=== PATIENT | male | born 1950 | race Caucasian/White ===

== ENCOUNTER 2017-02-18 18:10 | Inpatient (IN) | payer OTHER, MEDICARE ==
[~2017-02-18] VITALS: Ht 175.3 cm; Wt 92.6 kg
[2017-02-18 20:46] VITALS: BP 140/78; PULSE 80; RESP 17; TEMP 97.4; O2SAT 96
[2017-02-18] MEDS ORDERED: SILVER SULFADIAZINE/LIDOCAINE CREAM 60 GM JAR RECTAL PRN (23:00)
[2017-02-18 23:03] LABS: AUTOMATED NEUTROPHIL # 4.8 TH/MM3 (1.8-7.7); BASOPHIL # 0.1 TH/MM3 (0-0.2); BASOPHIL % 0.9 % (0.0-2.0); EOSINOPHIL # 0.4 TH/MM3 (0-0.4); EOSINOPHIL % 5.9 % (0.0-4.0); HEMATOCRIT 33.9 % (39.0-51.0); HEMO FLAGS DIFF FINAL; LYMPH % 21.5 % (9.0-44.0); LYMPHOCYTE # 1.6 TH/MM3 (1.0-4.8); MEAN CELL VOLUME 93.9 FL (80.0-100.0); MEAN CORPUSCULAR HEMOGLOBIN 32.5 PG (27.0-34.0); MEAN CORPUSCULAR HGB CONC 34.6 % (32.0-36.0); MONO % 9.2 % (0.0-8.0); NEUT % 62.5 % (16.0-70.0); PLATELET COUNT 179 TH/MM3 (150-450); RED BLOOD COUNT 3.61 MIL/MM3 (4.50-5.90); RED CELL DISTRIBUTION WIDTH 12.6 % (11.6-17.2); WHITE BLOOD COUNT 7.6 TH/MM3 (4.0-11.0)
[2017-02-18 23:05] LABS: APTT (PATIENT) 28.2 SEC (24.3-30.1)
[2017-02-18 23:09] LABS: ANION GAP 10 MEQ/L (5-15); AST (GOT) 23 U/L (15-37); BICARBONATE 21.4 MEQ/L (21.0-32.0); BLOOD UREA NITROGEN 18 MG/DL (7-18); CHLORIDE 102 MEQ/L (98-107); GLOMERULAR FILTRATION RATE 68 ML/MIN (>89); POTASSIUM 3.8 MEQ/L (3.5-5.1); SODIUM (NA) 133 MEQ/L (136-145)
[2017-02-18 23:10] LABS: ALT (GPT) 25 U/L (12-78)
[2017-02-18 23:13] LABS: ALKALINE PHOSPHATASE 76 U/L (45-117); TOTAL BILIRUBIN ADULT 0.7 MG/DL (0.2-1.0)
--- NOTE | 2017-02-18 23:15 | MH ---
cc: BAKARI MALIK M.D., KASHYAP M.D. 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 HISTORY OF PRESENT ILLNESS: Mr. Bhakta is a 66 year-old male who complains of severe pain and tenderness per rectum. Mr. Bhakta was in relatively good health having had a colonic evaluation early in the year which was pretty unremarkable. He recently presented to Dr. Esparza with complaints of increasing rectal pain and tenderness with difficulty with stool. He says he has been straining quite a bit to get the stool out, having some blood on the paper. He has had more pain and tenderness even to the point where he cannot sit, having difficulty standing, difficulty eating with only flatus and very constipated stool, less than once a week. He has tried laxatives and enemas without any significant improvement. Dr. Esparza did an examination under anesthesia and sigmoidoscopy noting severe tightness and stenosis of the anal canal. Biopsies have confirmed squamous cell carcinoma. He denies any nausea and vomiting. He says his abdomen has always been quite large but not any bigger than usual. He denies any fever. No hemorrhoidal prolapse or melena. Weight has been about 210 and stable. PAST MEDICAL HISTORY, PAST SURGICAL HISTORY: Previous coronary stents 15 years ago. No abdominal surgery. History of diabetes and gout as well. MEDICATIONS See admitting list. ALLERGIES None known. SOCIAL HISTORY: Denies tobacco use. Drinks alcohol socially. No history of colorectal cancer. PERTINENT PHYSICAL A very pleasant, heavy set male in some distress. HEENT: Remarkable for very dry but pale membranes, nonicteric sclera. Neck was supple without gross adenopathy. Chest: Diminished in the bases, clear anteriorly. Heart had a regular rhythm. Abdomen is very full quite a bit of tympany. Bowel sounds are normal. No rebound or guarding, or any masses noted. Anal inspection reveals very inflamed, irritated anal skin, several large hemorrhoidal tags which are very tender and hard to touch, consistent with anal cancer. Lumen of the canal is very small, not even admitting the fifth finger, with quite a bit of irregularity and firmness to minimal palpaiton. Extremities: No cyanosis or clubbing, and 1+ pedal edema. 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 The patient is significantly disabled with this rapidly growing tumor. We will get a CT scan to see if any other signs of metastatic disease is present in the chest, abdomen and pelvis. Suggest we proceed with diverting colostomy for patient comfort and to allow him to proceed with course of radiation and chemotherapy for the anal cancer. The risks, benefits and alternatives discussed at great length with the patient and will try to set up all the consults and surgery as soon as possible. MD FAISAL Wu/GANGA /10:57 PM /11:06 PM
[2017-02-19] VITALS (8 sets, daily range): BP systolic 138–175; BP diastolic 82–90; PULSE 70–103; RESP 17–19; TEMP 95.8–99; O2SAT 96–99
[2017-02-19] MEDS: oxyCODONE/ACETAMINOPHEN 5 MG/325 MG TAB PO PRN ×4 (00:06→20:14)
[2017-02-19] MEDS: MAGNESIUM CITRATE SOLN 300 ML BTL PO SCH ×2 (00:06→06:16)
[2017-02-19 00:14] LABS: BACTERIA, URINE RARE /hpf; BLOOD, URINE NEG (NEG); COMMENT (UR) CULT NOT INDICATED; CULTURE IF INDICATED CULT NOT INDICATED; GLUCOSE,URINE NEG (NEG); HYALINE CAST, URINE 3 /lpf (RARE); KETONE, URINE NEG (NEG); MUCUS URINE FEW /lpf (OCC); NITRITE,URINE NEG (NEG); PH, URINE 5.5 (5.0-8.5); URINE COLOR YELLOW (YELLW/STRAW)
[2017-02-19] MEDS: DEXT 5%-NACL 0.9% 1000 ML INJ 1,000 ML IV SCH ×2 (00:49→17:29)
[2017-02-19] MEDS: SILVER SULFADIAZINE/LIDOCAINE CREAM 60 GM JAR RECTAL SCH ×6 (01:30→20:18)
[2017-02-19] MEDS ORDERED: ALLO100T PO (04:16)
[2017-02-19] MEDS ORDERED: METF1000 PO (04:16)
[2017-02-19] MEDS ORDERED: TRAM50TA PO (04:16)
[2017-02-19] MEDS ORDERED: CLOP75TA PO (04:16)
[2017-02-19] MEDS ORDERED: METO50TA PO (04:16)
[2017-02-19] MEDS ORDERED: ATOR40TA16 PO (04:16)
[2017-02-19] MEDS ORDERED: LISI40TA PO (04:16)
[2017-02-19] MEDS ORDERED: TRAZ50TA12 PO (04:16)
[2017-02-19] MEDS ORDERED: METR500T10 PO (04:16)
[2017-02-19] MEDS ORDERED: VANCOMYCIN INJ 1,000 MG in SODIUM CHLOR 0.9% 250 ML INJ 250 ML IV SCH (08:30)
[2017-02-19] MEDS ORDERED: ceFAZolin 2 GM PREMIX 50 ML IV SCH (08:30)
--- NOTE | 2017-02-19 08:47 | MB ---
cc: JOANNA DING DATE OF CONSULTATION 02/19/2017 CHIEF COMPLAINT Squamous cell cancer of the anal canal. PATIENT PROFILE The patient is a 66-year-old male. He is but has been from his for 15 years. He lives alone and is independent. He has one son and two stepdaughters. He was born in [place] and currently lives in [place], [place]. He is retired. 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 He stopped smoking 21 years ago and had smoked a pack of cigarettes per day for 10 years. He has four or five beers per day. He enjoys sitting at the pool, having beer and being with friends. HISTORY OF PRESENT ILLNESS The patient is a 66-year-old male who states that in approximately May of 2017 he had a routine colonoscopy and there was no evidence of malignancy. During the past 3 months he has had increasing pain in the anal area with small amounts of bleeding. He returned to see his primary care physician, Dr. Davion Gerard, and had a rectal exam revealing an abnormality in the anal canal. The patient saw Dr. Esparza (GI) again and approximately 2 weeks ago had a rectal exam which identified a mass in the anal canal. Two days later he had a biopsy and, although I do not have the path report, Dr. Dos Santos indicates that this revealed a squamous cell carcinoma. Dr. Esparza referred the patient to Dr. Dos Santos who is a colorectal surgeon. The patient was found to have a near-obstructing lesion and for this reason he is now hospitalized with the intention to do a diverting colostomy within the next day. At the present time the patient is miserable. The anal area hurts, it bleeds. He has had a 10-pound weight loss. PAST SURGICAL HISTORY 1. Right inguinal hernia repair 40 years ago. 2. Approximately 15 years ago he had a coronary stent placed and a second coronary stent placed approximately 11 years ago. PAST MEDICAL HISTORY 1. Diabetes type 2. 2. Coronary artery disease. 3. Hypertension. 4. Elevated cholesterol. 5. Gout. MEDICATIONS PRIOR TO ADMISSION 1. Allopurinol 100 mg a day. 2. Atorvastatin 40 mg a day. 3. Plavix 75 mg a day. 4. Lisinopril 40 mg a day. 5. Metformin 1000 mg daily. 6. Metoprolol 50 mg b.i.d. 7. Flagyl 500 mg t.i.d. 8. Trazodone. ALLERGIES None. FAMILY HISTORY Father at 79 of prostate cancer. Mother at 78 of a hemorrhagic stroke. The patient has a sister who is living, a brother who is living, two brothers who of heart failure and another brother of a malignancy; the patient is not sure what type of malignancy. REVIEW OF SYSTEMS HEENT: The patient has reading glasses. Hearing is chronically decreased. Oral cavity, nose and throat notable for absence of most teeth. He has dentures. His dentures recently broke. CARDIOVASCULAR: No chest pain, palpitations, orthopnea, PND, claudication. RESPIRATORY: No fever, night sweats, chills, cough. GI: Notable for a 10-pound weight loss and pain in the anal area with bleeding. : No dysuria. His stream is poor. He has difficulty initiating urination. MUSCULOSKELETAL: No bone pain. NEUROLOGIC: No weakness. PSYCHIATRIC: Depression since the diagnosis. SKIN: No skin problems. PHYSICAL EXAMINATION GENERAL: Physical exam reveals a pleasant well-appearing male. He is [id number]. VITAL SIGNS: Blood pressure 130/80, respiratory rate 18, pulse 70, afebrile, 96% saturation. HEENT: Head is normocephalic. Sclerae and conjunctivae are normal. Oropharynx - Only a few remaining teeth. No mucosal lesions. LYMPHATICS: There is no cervical, supraclavicular, axillary or inguinal adenopathy. HEART: Regular rhythm. LUNGS: Clear without rales, wheezes or rhonchi. ABDOMEN: Soft. No enlargement of the liver or spleen. No masses. No tenderness. EXTREMITIES: No edema. MUSCULOSKELETAL: No bone pain. NEUROLOGIC: No weakness. RECTAL: On examination of the anal area, when I begin to insert a finger into the anus there is a tumor which was almost circumferential. I did not go any further because of pain. It is firm. ASSESSMENT The patient is a 66-year male who has had a rapidly progressive squamous cell cancer of the anal canal. PLAN 1. He needs a diverting colostomy and this will take place within the next day. 2. CT of the thorax, abdomen and pelvis. 3. Standard treatment assuming there is no evidence of metastatic disease would be radiation therapy with mitomycin and 5-FU at the beginning and end of radiation. 4. I will order an [id number]. 5. The situation was discussed with the patient including the details of treatment with radiation and chemotherapy. I discussed this with his surgeon, Dr. Dos Santos. I discussed this with Dr. Artem Arnold as well who is the radiation oncologist. MD RADHA Sheldon/GUILHERME /7:49 AM /8:07 AM MTDD
--- NOTE | 2017-02-19 09:12 | HHI.PR ---
Subjective Remarks Pt seen and examined for Dr Dos Santos in his absence. Planning Diverting loop colostomy tomorrow. Objective Vital Signs Date Time Temp Pulse Resp B/P Pulse Ox O2 Delivery O2 Flow Rate FiO2 02/19/17 08:00 95.8 90 19 144/86 96 02/19/17 00:26 97.5 70 18 138/82 96 02/18/17 20:46 97.4 80 17 140/78 96 I/O 02/18/17 02/18/17 02/18/17 02/19/17 02/19/17 02/19/17 07:00 15:00 23:00 07:00 15:00 23:00 Intake Total 120 ml 744 ml Output Total 1000 ml Balance 120 ml -256 ml Intake Oral 120 ml 380 ml IV Total 364 ml Output Urine Total 1000 ml # Voids 1 # Bowel Movements 0 Result Diagram: 02/18/17222502/18/172225 Objective Remarks VS-S Abd: obese,soft large diastasis recti due to obesity. Rectal: firm perianal area,severe pain,unable to insert finger. Assessment and Plan Assessment and Plan Anal obstruction due to Anal cancer Plan: Diverting loop sigmoid colostomy due to large diastasis recti. Ruddy Becerril MD Feb 19, 2017 09:12
--- NOTE | 2017-02-19 10:04 | RC ---
cc: BAKARI MALIK M.D.,MELLY TRAN M.D., M.D., KASHYAP M.D. FACTOR, BRAD A. MD DATE OF SERVICE: 02/19/2017 HISTORY OF PRESENT ILLNESS Mr. Bhakta is a 66-year-old male I am asked to see by Dr. Malik. Dr. Heaton discussed this case with him as well. Mr. Bhakta was recently admitted, reports squamous cell cancer, biopsy done recently of anal canal by Dr. Felton. He reported increasing pain, discomfort, difficulty getting stool out, reports not having bowel movements for over 9 days, has noted tobacco-like stools, very small amounts of stool, also significant discomfort in the anal area. Denies any weight loss. He denies any prior radiation therapy, ulcerative colitis, Crohn's, lupus, collagen vascular disease or scleroderma. Noted on exam to have tightness and stenosis of the anal canal with a biopsy-proven squamous cell cancer. PAST MEDICAL AND SURGICAL HISTORY 1. No prior radiation therapy. 2. Coronary stents. 3. Diabetes. 4. Gout. ALLERGIES None. SOCIAL HISTORY Drinks alcohol. Does not smoke. ALLERGIES No known drug allergies. REVIEW OF SYSTEMS Reports constipation, difficulty passing stools. Denies nausea, vomiting, denies chest pain, shortness breath, cough. PHYSICAL EXAMINATION GENERAL: Pleasant male, comfortable, slightly hard of hearing. EYES: Extraocular muscles intact. No scleral icterus. EXTREMITIES: No clubbing, cyanosis, edema. NEUROLOGIC: Alert and oriented, follows two-step commands. ANAL: Anal inspection demonstrates inflamed perianal skin, some firmness noted as well of the orifice. RADIOGRAPHIC IMAGING Studies pending. PATHOLOGY DATA Will obtain official pathology. IMPRESSION Mr. Bhakta is a 66-year-old male with biopsy-proven squamous cell cancer of the anus, at least [id number]. RECOMMENDATIONS We discussed diverting colostomy. We agree with this as it will improve symptoms immediately and likely make definitive chemoradiation therapy more likely to be successful, with less likelihood of treatment interruption. We discussed radiation therapy once a day Friday through Friday for 5 or 6 weeks. We discussed potential acute toxicity of radiotherapy. We discussed that we agree with diverting colostomy. Discussed this case with Dr. Heaton as well. Will await staging studies. Did communicate with Dr. Ritter as well. PLAN Follow his course inpatient. Setup radiation shortly and review staging studies, confirm final pathology. We discussed combined chemoradiation therapy. Artem Arnold MD Radiation Oncologist LILI/CARLOS /7:16 AM /9:44 AM
[2017-02-19] MEDS ORDERED: MIDAZOLAM HCL 5 MG/5 ML VIAL ONE (10:23)
[2017-02-19] MEDS ORDERED: fentaNYL CITRATE 250 MCG/5 ML AMP ONE (10:23)
[2017-02-19] MEDS ORDERED: LIDOCAINE 1%/EPINEPHrine 1:100,000 SOLN 20 ML VIAL ONE (10:35)
--- NOTE | 2017-02-19 10:41 | EKG ---
Date Performed: 02/19/2017 Time Performed: 09:30:03 PTAGE: 66 years EKG: Sinus rhythm SEPTAL MYOCARDIAL INFARCTION , OF INDETERMINATE AGE ABNORMAL ECG NO PREVIOUS TRACING DOCTOR: Pérez Mckinnon Interpretating Date/Time 02/19/2017 10:40:09
--- NOTE | 2017-02-19 11:51 | PD.RAD ---
Post Procedure Progress Note Pre Procedure Diagnosis: (1) Rectal cancer Post Procedure Diagnosis: (1) Rectal cancer Procedure Date: Feb 19, 2017 Supervising Radiologist: Babak Stokes JR Proceduralist/Assist: Liset Murray, RT(R), Ama Bo, RT(R)() Anesthesia: Conscious Sedation Plan of Activity Patient to Unit: [facility] Patient Condition: Good See PACS Report for procedural detail/treatment Central Venous Access Device Procedure 1 Right Internal Jugular Infusaport Placement single lumen Vietnamese: 8 Findings: Port in good position and functions well. OK to use. Plan F/U with IR or a physician in 10-14 days for a site check Jr. Kike,Babak Huang MD Feb 19, 2017 11:51
[2017-02-19] MEDS ORDERED: SODIUM CHLORIDE 0.9% FLUSH 10 ML FLUSH IVF PRN (12:00)
--- NOTE | 2017-02-19 14:46 | RADRPT ---
EXAM DATE/TIME: 02/19/2017 10:34 [facility] COMPARISON: No previous studies available for comparison. INDICATIONS : Patient with history of colon cancer in need of [id number] placement. MEDICAL HISTORY : Diabetes, PR, HTN, CAD, HLD, Anal canal mass and obstruction SURGICAL HISTORY : Hernia repair, Coronary stent placement, Sigmoidoscopy, Colonoscopy, Anal mass biopsy ENCOUNTER: Initial ACUITY: 7-11 months PAIN SCORE: 0/10 FLUORO TIME: 0.3 minutes IMAGE SERIES: 0 SEDATION TIME: 30 minutes ACCESS: Right internal jugular vein SEDATION: 1.) 5 mg midazolam (Versed) IV 2.) 250 mcg fentanyl (Sublimaze) IV Prophylactic antibiotics were administered with appropriate pre-procedure timing. Vancomycin within 2 hours of procedure, Ancef (or alternative) within 1 hour of procedure. DEVICE: 1. 8 Malawian single lumen Smart power port with vortex PROCEDURE : 1. Continuous pulse oximetry and EKG monitoring. 2. Intravenous conscious sedation. 3. Ultrasound guidance for venous access. 4. Fluoroscopic guided implantable central venous port placement. The patient was placed supine. The neck was prepped in sterile fashion. Full sterile technique was u sed, including cap, mask, sterile gloves and gown, and a large sterile sheet. Hand hygiene and 2% ch lorhexidine Betadine was utilized per protocol for cutaneous antisepsis with appropriate dry time for site. The skin and subcutaneous tissues were infiltrated with local anesthetic solution. Under direct ultrasound guidance, central venous access was accomplished in the targeted vessel. The ultrasound images depicting access guidance were stored and saved to PACS for permanent record. A s ubcutaneous pocket was created using blunt dissection. The port was introduced to the pocket. The c atheter tubing was fed through a subcutaneous tunnel to the venotomy site. The catheter tubing was c ut to a suitable length and then was introduced through a valved Peel-Away sheath and positioned with catheter tubing tip at the cavo-atrial junction level. The pocket incision was closed with subcutic ular Vicryl suture. Steri-Strips were applied. The port was flushed and locked with heparin solutio n per protocol. Sterile dressing was applied to the site. The patient tolerated the procedure well. Conscious sedation was performed with the prescribed dosages and duration as above in the presence of an independent trained radiology nurse to assist in the monitoring of the patient. EKG and oximetry remained stable throughout the procedure. The patient tolerated the procedure well and there were no complications. The patient was sent to post anesthesia recovery in stable condition. CONCLUSION: Uncomplicated ultrasound and fluoroscopic guided implanted central venous port catheter placement as described in detail above. An 8 Malawian Power port was placed. Babak Stokes Jr., MD on February 19, 2017 at 14:45 Board Certified Radiologist. This report was verified electronically.
--- NOTE | 2017-02-19 15:55 | RADRPT ---
EXAM DATE/TIME: 02/19/2017 14:46 [facility] COMPARISON: No previous studies available for comparison. INDICATIONS : Lower abdomen pain, prior colon cancer. ORAL CONTRAST: No oral contrast ingested. RADIATION DOSE: 19.14 CTDIvol (mGy) ; Combined studies - Thorax/Abdomen/Pelvis MEDICAL HISTORY : Cardiovascular disease. Carcinoma, colon. Diabetes mellitus type 2.Rectal cancer. SURGICAL HISTORY : Coronary artery stent. ENCOUNTER: Initial ACUITY: 1 day PAIN SCALE: 4/10 LOCATION: Bilateral lower quadrant TECHNIQUE: Volumetric scanning of the abdomen and pelvis was performed. Using automated exposure control and ad justment of the mA and/or kV according to patient size, radiation dose was kept as low as reasonably achievable to obtain optimal diagnostic quality images. DICOM format image data is available electro nically for review and comparison. FINDINGS: LOWER LUNGS: See CT of the thorax dictated separately. LIVER: Homogeneous density without lesion. There is no dilation of the biliary tree. No calcified gallston es. SPLEEN: Normal size without lesion. PANCREAS: Within normal limits. KIDNEYS: Normal in size and shape. There is no mass, stone, or hydronephrosis. ADRENAL GLANDS: Within normal limits. VASCULAR: There is no aortic aneurysm. BOWEL/MESENTERY: The stomach, small bowel, and colon demonstrate no acute abnormality. There is no free intraperitone al air or fluid. Scattered colonic diverticuli. Appendix is normal by CT criteria. ABDOMINAL WALL: Within normal limits. RETROPERITONEUM: There is no lymphadenopathy. BLADDER: No wall thickening or mass. REPRODUCTIVE: Within normal limits. INGUINAL: There is no lymphadenopathy or hernia. MUSCULOSKELETAL: Within normal limits for patient age. CONCLUSION: 1. No acute abnormality. 2. Mild colonic diverticulosis without acute inflammation. Babak Stokes Jr., MD on February 19, 2017 at 15:50 Board Certified Radiologist. This report was verified electronically.
--- NOTE | 2017-02-19 15:56 | RADRPT ---
EXAM DATE/TIME: 02/19/2017 14:46 [facility] COMPARISON: No previous studies available for comparison. INDICATIONS : Short of breath, prior colon cancer. RADIATION DOSE: 19.14 CTDIvol (mGy) ; Combined studies - Thorax/Abdomen/Pelvis MEDICAL HISTORY : Diabetes mellitus type 2. Cardiovascular disease Carcinoma, rectal. SURGICAL HISTORY : Coronary artery stent. ENCOUNTER: Initial ACUITY: 1 day PAIN SCALE: 4/10 LOCATION: Bilateral lower quadrant TECHNIQUE: Volumetric scanning of the chest was performed. Using automated exposure control and adjustment of t he mA and/or kV according to patient size, radiation dose was kept as low as reasonably achievable to obtain optimal diagnostic quality images. DICOM format image data is available electronically for r eview and comparison. Follow-up recommendations for incidentally detected pulmonary nodules are based at a minimum on nodul e size and patient risk factors according to Fleischner Society Guidelines. FINDINGS: LUNGS: There is no consolidation or pneumothorax. No concerning pulmonary nodule is visualized. A calcified granuloma within the right lung base. PLEURAE: There is no pleural thickening or pleural effusion. MEDIASTINUM: The heart is at the upper limits of normal in terms of size. No pericardial effusion. Significant cor onary artery atherosclerotic calcifications. Aorta and pulmonary arteries are normal in caliber. No a denopathy. AXILLAE: Within normal limits. No lymphadenopathy. MUSCULOSKELETAL: Within normal limits for patient age. MISCELLANEOUS: The visualized upper abdominal organs demonstrate no acute abnormality. CONCLUSION: 1. Significant coronary artery atherosclerotic calcifications. 2. Prior granulomatous disease. Babak Stokes Jr., MD on February 19, 2017 at 15:53 Board Certified Radiologist. This report was verified electronically.
[2017-02-20 00:04] VITALS: BP 142/79; PULSE 79; RESP 18; TEMP 97.5; O2SAT 95
[2017-02-20] MEDS: SILVER SULFADIAZINE/LIDOCAINE CREAM 60 GM JAR RECTAL SCH ×6 (00:28→22:46)
[2017-02-20] MEDS: oxyCODONE/ACETAMINOPHEN 5 MG/325 MG TAB PO PRN ×4 (02:04→19:59)
[2017-02-20] MEDS ORDERED: LACTATED RINGER'S 1000 ML IV PRN (05:15)
[2017-02-20] MEDS: DEXT 5%-NACL 0.9% 1000 ML INJ 1,000 ML IV SCH (05:37)
[2017-02-20 08:00] VITALS: BP 139/84; PULSE 69; RESP 17; TEMP 97.2; O2SAT 95
--- NOTE | 2017-02-20 08:15 | HHI.PR ---
Subjective Remarks Passing gas. Little stool. NPO except meds; for Loop Sigmoid colostomy today Objective Vital Signs Date Time Temp Pulse Resp B/P Pulse Ox O2 Delivery O2 Flow Rate FiO2 02/20/17 00:04 97.5 79 18 142/79 95 02/19/17 20:14 99.0 80 17 145/83 98 02/19/17 16:00 96.7 81 18 141/84 96 02/19/17 13:05 96.9 103 18 175/87 96 02/19/17 12:35 89 18 140/90 99 02/19/17 12:05 98 17 154/84 97 02/19/17 11:50 97.8 103 18 160/89 98 I/O 02/19/17 02/19/17 02/19/17 02/20/17 02/20/17 02/20/17 06:59 14:59 22:59 06:59 14:59 22:59 Intake Total 744 ml 200 ml 560 ml 654 ml Output Total 1000 ml 225 ml 1000 ml 1200 ml Balance -256 ml -25 ml -440 ml -546 ml Intake Oral 380 ml 200 ml 380 ml IV Total 364 ml 180 ml 654 ml Output Urine Total 1000 ml 225 ml 1000 ml 1200 ml # Voids 3 # Bowel Movements 0 0 Result Diagram: 02/18/17222502/18/172225 Objective Remarks VS-S Abd: obese,soft large diastasis recti due to obesity. Rectal: firm perianal area,severe pain,unable to insert finger. Assessment and Plan Assessment and Plan Anal obstruction due to Anal cancer. Reviewed CT scans. No evidence of metastases. Appears to have long redundant Sigmoid Plan: Diverting loop sigmoid colostomy due to Anal obstruction secondary to Anal Cancer. Will place colostomy in Sigmoid due to large Diastasis Recti. Ruddy Becerril MD Feb 20, 2017 08:15
[2017-02-20] MEDS ORDERED: NEOSTIGMINE 3 MG/3 ML SYR IV ONE (10:22)
[2017-02-20] MEDS ORDERED: ACETAMINOPHEN 1000 MG/100 ML VIAL IV ONE (10:22)
[2017-02-20] MEDS ORDERED: PROPOFOL 200 MG/20 ML AMP IV ONE (10:22)
[2017-02-20] MEDS ORDERED: LACTATED RINGER'S 1000 ML INJ 1,000 ML IV ONE (10:23)
[2017-02-20] MEDS ORDERED: ONDANSETRON HCL 4 MG/2 ML VIAL IV PUSH ONE (10:23)
[2017-02-20 12:00] VITALS: BP 141/80; PULSE 65; RESP 17; TEMP 97.2; O2SAT 96
[2017-02-20 16:00] VITALS: BP 160/79; PULSE 66; RESP 17; TEMP 97.5; O2SAT 97
[2017-02-20] MEDS ORDERED: DEXAMETHASONE SOD PHOS 4 MG/ML VIAL ONE (17:02)
[2017-02-20] MEDS ORDERED: FAMOTIDINE 20 MG/2 ML VIAL ONE (17:02)
[2017-02-20] MEDS ORDERED: DO NOT ADM ANY ANTICOAGULANT DRUGS PRN (18:30)
[2017-02-20] MEDS ORDERED: fentaNYL CITRATE 250 MCG/5 ML AMP ONE (18:40)
[2017-02-20] MEDS ORDERED: MIDAZOLAM HCL 2 MG/2 ML VIAL ONE (18:40)
[2017-02-20] MEDS ORDERED: *morphine SULFATE 8 MG/ML PERIprocedure ONLY ONE (18:46)
[2017-02-20] MEDS: D5-LR + KCL 20 MEQ INJ 1,000 ML IV SCH (19:35)
[2017-02-20 20:00] VITALS: BP 167/63; PULSE 78; RESP 17; TEMP 97; O2SAT 97
[2017-02-20] MEDS ORDERED: MORPHINE SULFATE 4 MG/ML INJ IV PRN (22:00)
[2017-02-20] MEDS: MORPHINE SULFATE 8 MG/ML INJ IV PUSH PRN (22:44)
[2017-02-21] VITALS: BP 177/97; PULSE 98; RESP 20; TEMP 98.2; O2SAT 97
[2017-02-21] MEDS: MORPHINE SULFATE 8 MG/ML INJ IV PUSH PRN ×4 (01:42→20:56)
[2017-02-21] MEDS: D5-LR + KCL 20 MEQ INJ 1,000 ML IV SCH ×4 (02:30→18:24)
[2017-02-21 04:00] VITALS: BP 140/89; PULSE 90; RESP 20; TEMP 100.2; O2SAT 96
[2017-02-21 04:08] LABS: BASOPHIL % 0.3 % (0.0-2.0); EOSINOPHIL % 0.1 % (0.0-4.0); HEMATOCRIT 33.2 % (39.0-51.0); HEMO FLAGS DIFF FINAL; LYMPH % 5.8 % (9.0-44.0); LYMPHOCYTE # 0.6 TH/MM3 (1.0-4.8); MEAN CELL VOLUME 94.2 FL (80.0-100.0); MEAN CORPUSCULAR HEMOGLOBIN 32.2 PG (27.0-34.0); MEAN CORPUSCULAR HGB CONC 34.2 % (32.0-36.0); MONO % 5.2 % (0.0-8.0); NEUT % 88.6 % (16.0-70.0); PLATELET COUNT 161 TH/MM3 (150-450); RED BLOOD COUNT 3.52 MIL/MM3 (4.50-5.90); RED CELL DISTRIBUTION WIDTH 12.7 % (11.6-17.2); WHITE BLOOD COUNT 10.2 TH/MM3 (4.0-11.0)
[2017-02-21 04:16] LABS: BICARBONATE 24.1 MEQ/L (21.0-32.0); POTASSIUM 4.4 MEQ/L (3.5-5.1)
[2017-02-21] MEDS: SILVER SULFADIAZINE/LIDOCAINE CREAM 60 GM JAR RECTAL SCH ×6 (04:16→23:39)
[2017-02-21 08:00] VITALS: BP 133/82; PULSE 98; RESP 19; TEMP 98.8; O2SAT 93
[2017-02-21] MEDS: oxyCODONE/ACETAMINOPHEN 5 MG/325 MG TAB PO PRN ×2 (09:08→17:01)
--- NOTE | 2017-02-21 10:02 | PD.ONC.PN ---
Subjective Subjective Remarks Tmax 100.2 this AM. Patient resting in bed. Still having significant pain in abdomen requiring pain medication. sister at bedside. Son at bedside. Objective Data Date Time Temp Pulse Resp B/P Pulse Ox O2 Delivery O2 Flow Rate FiO2 02/21/17 08:00 98.8 98 19 133/82 93 02/21/17 04:00 100.2 90 20 140/89 96 02/21/17 00:00 98.2 98 20 177/97 97 02/20/17 20:00 97.0 78 17 167/63 97 02/20/17 19:30 97.8 68 16 148/81 96 Nasal Cannula 2 02/20/17 19:15 68 16 149/84 96 Nasal Cannula 2 02/20/17 19:00 69 16 154/85 97 Nasal Cannula 2 02/20/17 18:45 70 16 160/78 98 Nasal Cannula 3 02/20/17 18:30 98.2 75 18 169/81 96 Nasal Cannula 3 02/20/17 16:00 97.5 66 17 160/79 97 02/20/17 12:00 97.2 65 17 141/80 96 Result Diagram: 02/21/17 0335 02/21/17 0335 Laboratory Results Laboratory Tests Test 02/21/17 03:35 White Blood Count 10.2 TH/MM3 Red Blood Count 3.52 MIL/MM3 Hemoglobin 11.3 GM/DL Hematocrit 33.2 % Mean Corpuscular Volume 94.2 FL Mean Corpuscular Hemoglobin 32.2 PG Mean Corpuscular Hemoglobin 34.2 % Concent Red Cell Distribution Width 12.7 % Platelet Count 161 TH/MM3 Mean Platelet Volume 8.5 FL Neutrophils (%) (Auto) 88.6 % Lymphocytes (%) (Auto) 5.8 % Monocytes (%) (Auto) 5.2 % Eosinophils (%) (Auto) 0.1 % Basophils (%) (Auto) 0.3 % Neutrophils # (Auto) 9.0 TH/MM3 Lymphocytes # (Auto) 0.6 TH/MM3 Monocytes # (Auto) 0.5 TH/MM3 Eosinophils # (Auto) 0.0 TH/MM3 Basophils # (Auto) 0.0 TH/MM3 CBC Comment DIFF FINAL Differential Comment Sodium Level 136 MEQ/L Potassium Level 4.4 MEQ/L Chloride Level 104 MEQ/L Carbon Dioxide Level 24.1 MEQ/L Anion Gap 8 MEQ/L Blood Urea Nitrogen 7 MG/DL Creatinine 0.88 MG/DL Estimat Glomerular Filtration 87 ML/MIN Rate Random Glucose 154 MG/DL Calcium Level 8.2 MG/DL Administered Medications Medications (Trade) Dose Ordered Sig/Freddie Route PRN Reason Start Time Stop Time Status Last Admin Dose Admin Oxycodone/ Acetaminophen (Percocet 5-325 Mg) 1 tab Q6H PRN PO PAIN 1-5 02/18/17 23:00 02/20/17 07:57 Oxycodone/ Acetaminophen (Percocet 5-325 Mg) 2 tab Q6H PRN PO PAIN 6-10 02/18/17 23:00 02/21/17 09:08 Compound Med 1 applic 1 applic Q4H RECTAL 02/19/17 00:00 02/21/17 09:08 Potassium Cl/ Dextrose/Lact Ringer's (D5-Lr + KCl 20 Meq Inj) 1,000 ml @ 125 mls/hr Q8H IV 02/20/17 18:30 02/20/17 19:35 Morphine Sulfate (Morphine Inj) 6 mg Q2H PRN IV PUSH PAIN 5-10 02/20/17 22:00 02/21/17 04:14 Objective Remarks GENERAL: Middle aged male supine in bed. SKIN: Warm and dry. HEAD: Normocephalic. EYES: No injection or drainage. NECK: Supple, trachea midline. CARDIOVASCULAR: +S1/S2 RESPIRATORY: Breath sounds equal bilaterally. No accessory muscle use. GASTROINTESTINAL: Abdomen soft, mild distention. tenderness around the stoma. EXTREMITIES: No cyanosis NEUROLOGICAL: awake and alert, normal speech. Assessment/Plan Assessment 66y/o male with anal cancer, squamous cell type Plan 1. continue pain management. 2. follow up with Dr. Heaton next week--FS FAXED TO NEW PATIENT REFERRALS Written by Jessica Tejeda, acting as scribe for on 02/21/17 at 10:01. Attending Statement I spoke with patient, sister and son and reviewed the treatment plan following discharge from the hospital. Hopefully will be able to begin radiation and chemotherapy within two weeks of discharge. I will see him next week in outpatient setting. Jessica Tejeda Feb 21, 2017 10:02 Benitez Heaton MD Feb 21, 2017 19:25
[2017-02-21 12:00] VITALS: BP 139/77; PULSE 88; RESP 18; TEMP 99; O2SAT 93
[2017-02-21 16:00] VITALS: BP 145/76; PULSE 99; RESP 17; TEMP 100.1; O2SAT 96
--- NOTE | 2017-02-21 17:38 | HHI.PR ---
Subjective Remarks Passing gas. Little stool. C/O pain. Objective Vital Signs Date Time Temp Pulse Resp B/P Pulse Ox O2 Delivery O2 Flow Rate FiO2 02/21/17 16:00 100.1 99 17 145/76 96 02/21/17 12:00 99.0 88 18 139/77 93 02/21/17 08:00 98.8 98 19 133/82 93 02/21/17 04:00 100.2 90 20 140/89 96 02/21/17 00:00 98.2 98 20 177/97 97 02/20/17 20:00 97.0 78 17 167/63 97 02/20/17 19:30 97.8 68 16 148/81 96 Nasal Cannula 2 02/20/17 19:15 68 16 149/84 96 Nasal Cannula 2 02/20/17 19:00 69 16 154/85 97 Nasal Cannula 2 02/20/17 18:45 70 16 160/78 98 Nasal Cannula 3 02/20/17 18:30 98.2 75 18 169/81 96 Nasal Cannula 3 I/O 02/20/17 02/20/17 02/20/17 02/21/17 02/21/17 02/21/17 07:00 15:00 23:00 07:00 15:00 23:00 Intake Total 654 ml 520 ml 1180 ml 240 ml 240 ml Output Total 1200 ml 350 ml 1360 ml 1125 ml 1900 ml Balance -546 ml 170 ml -180 ml -885 ml -1660 ml Intake Oral 0 ml 480 ml 240 ml 240 ml IV Total 654 ml 520 ml 100 ml Other 600 ml Output Urine Total 1200 ml 350 ml 1125 ml 950 ml 1900 ml Stool Total 225 ml 175 ml Estimated Blood Loss 10 ml Bladder Scan Volume Amount 723 ml # Voids 0 # Bowel Movements 0 0 Result Diagram: 02/21/17 0335 02/21/17 0335 Objective Remarks VS-S Abd: obese,soft,distended,Stoma dark and edematous. Assessment and Plan Assessment and Plan Anal obstruction due to Anal cancer. Plan: Increase diet, increase pain Ruddy Selby MD Feb 21, 2017 17:38
[2017-02-21 20:00] VITALS: BP 139/91; PULSE 116; RESP 21; TEMP 101.1; O2SAT 93
[2017-02-21] MEDS ORDERED: oxyCODONE/ACETAMINOPHEN 5 MG/325 MG TAB PO PRN (20:00)
[2017-02-22] VITALS: BP 138/89; PULSE 130; RESP 21; TEMP 100.4; O2SAT 91
[2017-02-22 00:30] VITALS: BP 128/82; PULSE 88; RESP 20; TEMP 98.9; O2SAT 96
[2017-02-22] MEDS: D5-LR + KCL 20 MEQ INJ 1,000 ML IV SCH ×4 (00:31→23:26)
[2017-02-22] MEDS: SILVER SULFADIAZINE/LIDOCAINE CREAM 60 GM JAR RECTAL SCH ×5 (04:02→23:25)
[2017-02-22] MEDS ORDERED: METOCLOPRAMIDE HCL 10 MG/2 ML VIAL IV ONE (07:45)
[2017-02-22] MEDS ORDERED: ONDANSETRON HCL 4 MG/2 ML VIAL IV PUSH PRN (07:45)
[2017-02-22] MEDS: PANTOPRAZOLE SODIUM 40 MG VIAL IV PUSH SCH ×2 (07:55→22:38)
[2017-02-22 08:00] VITALS: BP 134/93; PULSE 133; RESP 19; TEMP 98.8; O2SAT 94
--- NOTE | 2017-02-22 09:25 | PD.ONC.PN ---
Subjective Subjective Remarks Tmax 101.1 overnight. States his pain is a little better today. Had a difficult time sleeping last night d/t pain and indigestion. Objective Data Date Time Temp Pulse Resp B/P Pulse Ox O2 Delivery O2 Flow Rate FiO2 02/22/17 08:00 98.8 133 19 134/93 94 02/22/17 00:30 98.9 88 20 128/82 96 02/22/17 00:00 100.4 130 21 138/89 91 02/21/17 21:01 20 02/21/17 20:00 101.1 116 21 139/91 93 02/21/17 16:00 100.1 99 17 145/76 96 02/21/17 12:00 99.0 88 18 139/77 93 Result Diagram: 02/21/17 0335 02/21/17 0335 Administered Medications Medications (Trade) Dose Ordered Sig/Freddie Route PRN Reason Start Time Stop Time Status Last Admin Dose Admin Compound Med 1 applic 1 applic Q4H RECTAL 02/19/17 00:00 02/22/17 04:02 Potassium Cl/ Dextrose/Lact Ringer's (D5-Lr + KCl 20 Meq Inj) 1,000 ml @ 100 mls/hr Q10H IV 02/20/17 18:30 02/22/17 00:31 Morphine Sulfate (Morphine Inj) 6 mg Q2H PRN IV PUSH PAIN 5-10 02/20/17 22:00 02/21/17 20:56 Pantoprazole Sodium (Protonix Inj) 40 mg BID IV PUSH 02/22/17 09:00 02/22/17 07:55 Ondansetron HCl (Zofran Inj) 4 mg Q4H PRN IV PUSH NAUSEA 02/22/17 07:45 02/22/17 07:55 Objective Remarks GENERAL: Middle aged male resting in bed. on 2L O2 via NC SKIN: Warm and dry. HEAD: Normocephalic. EYES: No injection or drainage. NECK: Supple, trachea midline. CARDIOVASCULAR: +S1/S2 RESPIRATORY: Breath sounds equal bilaterally. No accessory muscle use. GASTROINTESTINAL: Abdomen distended. mildly tender to palpation. colostomy bag in place with brown stool. EXTREMITIES: No cyanosis NEUROLOGICAL: awake and alert, normal speech. Assessment/Plan Problem List: (1) Rectal cancer Status: Acute Plan: 02/22: continue pain management. antibiotics per primary. once discharged plan for follow up in clinic with Dr. Heaton, hopeful for next week. 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 Attending Statement Complaining of insomnia Pain is under control On present narcotics Patient has anal cancer. CAT scan does not show any metastatic disease Patient will be to Have radiation and chemotherapy as an outpatient Discuss with patient The exam, history, and the medical decision-making described in the above note were completed with the assistance of the mid-level provider. I reviewed and agree with the findings presented. I attest that I had a [id number] encounter with the patient on the same day, and personally performed and documented my assessment and findings in the medical record. Jessica Tejeda Feb 22, 2017 09:25 Eulalia Ghosh MD Feb 23, 2017 00:20
[2017-02-22] MEDS: metroNIDAZOLE 500 MG INJ 100 ML IV SCH ×2 (09:49→17:52)
[2017-02-22] MEDS: RESP: ALBUTEROL 2.5 MG/3 ML NEB (SCH) INH ×3 (11:32→20:00)
[2017-02-22 12:00] VITALS: BP 144/90; PULSE 109; RESP 17; TEMP 98.3; O2SAT 93
[2017-02-22] MEDS: METOCLOPRAMIDE HCL 10 MG/2 ML VIAL IV SCH ×3 (12:12→23:25)
[2017-02-22] MEDS: ALUMINUM/MAGNESIUM/SIMETH 30 ML CUP PO PRN ×2 (12:16→15:51)
--- NOTE | 2017-02-22 14:26 | MP ---
cc: ISAC DESAI,JOANNA BECERRIL,ABISAI Erickson M.D. DATE OF SURGERY: 02/20/2017 PREOPERATIVE DIAGNOSIS: Squamous cell carcinoma anal canal. POSTOPERATIVE DIAGNOSIS: Squamous cell carcinoma anal canal. OPERATION: Diverting loop ileostomy. ANESTHESIA: General endotracheal anesthesia. SURGEON: Abisai Becerril MD. DENTAL OFFICE RECEPTIONIST: Dr. Roberson. ESTIMATED BLOOD LOSS: Minimal. OPERATIVE FINDINGS: This patient came into the hospital with severe anal pain, was found to have a circumferential squamous cell carcinoma of the anal canal that was nearly obstructing. Treatment for this is radiation therapy, chemotherapy, he has been seen by radiation oncology and medical oncology and preoperative CT scans were done of the chest, abdomen and pelvis. The patient needs diversion because of severe pain and obstruction. For this reason diverting loop colostomy was done in the sigmoid colon. It was not done in the transverse colon because of a large diastasis recti and also because it may well be a permanent colostomy given the fact that this is a large circumferential lesion. OPERATIVE TECHNIQUE: The patient was placed on the table in the supine position after adequate general endotracheal anesthesia, the legs were placed in the perineo lithotomy position and the abdomen and perineum were prepped and draped in the usual manner. A circular skin incision was made in the left lower quadrant and taken down to the anterior rectus sheath which was incised longitudinally. The rectus muscles were split and the posterior rectus sheath was incised and the peritoneal cavity was entered with the above mentioned findings. Sigmoid colon was localized. The small bowel was mildly dilated as was the colon but not extremely dilated. We found a loop of sigmoid colon but in going more distal it seemed that we found a more distal loop coursing across the mid abdomen. For this reason we pulled this loop up through the stoma site and Dr. Roberson ended a proctosigmoidoscopy and insufflated air into the rectum and the distal end of this loop inflated with air. A #70 bar was placed under the loop and a 70 mm appliance was placed after the loop was opened and matured with interrupted 2-0 Vicryl sutures. Once this was done both limbs of the loop were irrigated thoroughly with two liters of saline solution and the distal limb was fully washed out with this saline solution. Once the saline from the rectum was cleared the irrigation was stopped and the colostomy bag was applied. The sponge, needle and instrument counts were reported as correct and estimated blood loss is minimal. The patient tolerated the procedure well and left the operating room in good condition. MD CHAPO Alvarez/lissette /6:28 PM /2:18 PM
[2017-02-22 16:00] VITALS: BP 161/90; PULSE 106; RESP 16; TEMP 98.9; O2SAT 92
[2017-02-22] MEDS: oxyCODONE/ACETAMINOPHEN 5 MG/325 MG TAB PO PRN (19:05)
[2017-02-22 20:00] VITALS: BP 155/86; PULSE 100; RESP 20; TEMP 96.3; O2SAT 93
[2017-02-23] VITALS (7 sets, daily range): BP systolic 129–147; BP diastolic 80–90; PULSE 92–118; RESP 16–20; TEMP 97.3–99.7; O2SAT 92–94
[2017-02-23] MEDS: metroNIDAZOLE 500 MG INJ 100 ML IV SCH ×3 (02:00→17:51)
[2017-02-23] MEDS: SILVER SULFADIAZINE/LIDOCAINE CREAM 60 GM JAR RECTAL SCH ×5 (05:38→21:52)
[2017-02-23] MEDS: oxyCODONE/ACETAMINOPHEN 5 MG/325 MG TAB PO PRN ×4 (05:38→21:48)
[2017-02-23] MEDS: METOCLOPRAMIDE HCL 10 MG/2 ML VIAL IV SCH ×3 (05:39→17:53)
[2017-02-23] MEDS: RESP: ALBUTEROL 2.5 MG/3 ML NEB (SCH) INH ×4 (08:35→20:00)
[2017-02-23] MEDS: PANTOPRAZOLE SODIUM 40 MG VIAL IV PUSH SCH ×2 (09:24→21:46)
[2017-02-23] MEDS: VANCOMYCIN INJ 1,000 MG in SODIUM CHLOR 0.9% 250 ML INJ 250 ML IV SCH ×2 (09:29→21:47)
[2017-02-23] MEDS: ALUMINUM/MAGNESIUM/SIMETH 30 ML CUP PO PRN ×2 (12:04→17:52)
[2017-02-23] MEDS: D5-LR + KCL 20 MEQ INJ 1,000 ML IV SCH ×2 (14:41→18:30)
[2017-02-24] VITALS: BP 145/89; PULSE 86; RESP 20; TEMP 98.8; O2SAT 94
[2017-02-24] MEDS: D5-LR + KCL 20 MEQ INJ 1,000 ML IV SCH ×3 (02:15→11:16)
[2017-02-24] MEDS: metroNIDAZOLE 500 MG INJ 100 ML IV SCH ×3 (02:15→17:42)
[2017-02-24] MEDS: SILVER SULFADIAZINE/LIDOCAINE CREAM 60 GM JAR RECTAL SCH ×6 (02:15→20:39)
[2017-02-24] MEDS: METOCLOPRAMIDE HCL 10 MG/2 ML VIAL IV SCH ×5 (05:43→22:24)
--- NOTE | 2017-02-24 07:23 | HHI.PR ---
Subjective Remarks Passing gas. Liquid stool. Less pain Objective Vital Signs Date Time Temp Pulse Resp B/P Pulse Ox O2 Delivery O2 Flow Rate FiO2 02/24/17 00:00 98.8 86 20 145/89 94 02/23/17 21:37 94 02/23/17 20:00 98.0 92 18 146/86 94 02/23/17 16:00 97.3 98 16 140/83 92 02/23/17 12:00 98.6 102 16 146/83 93 02/23/17 08:00 98.5 110 18 129/80 93 I/O 02/23/17 02/23/17 02/23/17 02/24/17 02/24/17 02/24/17 07:00 15:00 23:00 07:00 15:00 23:00 Intake Total 1835 ml 720 ml 1721 ml 1044 ml Output Total 810 ml 575 ml 600 ml 550 ml Balance 1025 ml 145 ml 1121 ml 494 ml Intake Oral 290 ml 720 ml 240 ml 240 ml IV Total 1545 ml 1481 ml 804 ml Output Urine Total 600 ml 575 ml 600 ml 550 ml Stool Total 210 ml 0 ml 0 ml # Bowel Movements 0 Result Diagram: 02/21/17 0335 02/21/17 0335 Objective Remarks VS-S Abd: obese,soft, stoma extremly beefy and edematous causing mucosal slough, but viable. Bar removed by me. Assessment and Plan Assessment and Plan Anal obstruction due to Anal cancer. Plan: Probable D/C tomorrow with [facility] for colostomy teaching. Ruddy Becerril MD Feb 24, 2017 07:23
[2017-02-24 07:30] LABS: AUTOMATED NEUTROPHIL # 7.6 TH/MM3 (1.8-7.7); BASOPHIL % 0.3 % (0.0-2.0); EOSINOPHIL # 0.5 TH/MM3 (0-0.4); EOSINOPHIL % 5.2 % (0.0-4.0); HEMATOCRIT 29.2 % (39.0-51.0); HEMO FLAGS DIFF FINAL; LYMPH % 8.3 % (9.0-44.0); LYMPHOCYTE # 0.8 TH/MM3 (1.0-4.8); MEAN CELL VOLUME 93.1 FL (80.0-100.0); MEAN CORPUSCULAR HEMOGLOBIN 33.4 PG (27.0-34.0); MEAN CORPUSCULAR HGB CONC 35.9 % (32.0-36.0); MONO % 6.5 % (0.0-8.0); NEUT % 79.7 % (16.0-70.0); PLATELET COUNT 148 TH/MM3 (150-450); RED BLOOD COUNT 3.14 MIL/MM3 (4.50-5.90); RED CELL DISTRIBUTION WIDTH 12.4 % (11.6-17.2); WHITE BLOOD COUNT 9.5 TH/MM3 (4.0-11.0)
[2017-02-24 07:47] LABS: BICARBONATE 22.8 MEQ/L (21.0-32.0)
[2017-02-24 08:00] VITALS: BP 157/89; PULSE 79; RESP 20; TEMP 97.9; O2SAT 95
[2017-02-24] MEDS: PANTOPRAZOLE SODIUM 40 MG VIAL IV PUSH SCH ×2 (09:02→20:31)
[2017-02-24] MEDS: ALUMINUM/MAGNESIUM/SIMETH 30 ML CUP PO PRN (09:13)
[2017-02-24] MEDS: RESP: ALBUTEROL 2.5 MG/3 ML NEB (SCH) INH ×4 (09:18→20:00)
[2017-02-24 09:19] VITALS: O2SAT 98
[2017-02-24] MEDS: VANCOMYCIN INJ 1,000 MG in SODIUM CHLOR 0.9% 250 ML INJ 250 ML IV SCH ×2 (11:18→20:32)
[2017-02-24 12:00] VITALS: BP 157/89; PULSE 79; RESP 20; TEMP 97.9; O2SAT 95
[2017-02-24 16:00] VITALS: BP 175/92; PULSE 82; RESP 19; TEMP 98.6; O2SAT 95
[2017-02-24 20:00] VITALS: BP 164/82; PULSE 103; RESP 18; TEMP 98.7; O2SAT 94
[2017-02-24] MEDS: ZOLPIDEM TARTRATE 5 MG TAB PO PRN (20:32)
[2017-02-24] MEDS: oxyCODONE/ACETAMINOPHEN 5 MG/325 MG TAB PO PRN (22:25)
[2017-02-25] VITALS: BP 147/76; PULSE 82; RESP 17; TEMP 97.8; O2SAT 95
[2017-02-25] MEDS: metroNIDAZOLE 500 MG INJ 100 ML IV SCH ×3 (01:45→16:18)
[2017-02-25] MEDS: SILVER SULFADIAZINE/LIDOCAINE CREAM 60 GM JAR RECTAL SCH ×5 (01:46→16:00)
[2017-02-25] MEDS: D5-LR + KCL 20 MEQ INJ 1,000 ML IV SCH (04:12)
[2017-02-25] MEDS: METOCLOPRAMIDE HCL 10 MG/2 ML VIAL IV SCH ×4 (04:12→23:10)
[2017-02-25] MEDS: RESP: ALBUTEROL 2.5 MG/3 ML NEB (SCH) INH ×4 (07:52→20:00)
[2017-02-25 08:00] VITALS: BP 171/88; PULSE 81; RESP 17; TEMP 98.2; O2SAT 95
[2017-02-25] MEDS: PANTOPRAZOLE SODIUM 40 MG VIAL IV PUSH SCH ×2 (09:47→19:50)
[2017-02-25] MEDS: VANCOMYCIN INJ 1,000 MG in SODIUM CHLOR 0.9% 250 ML INJ 250 ML IV SCH (10:00)
[2017-02-25 12:00] VITALS: BP 143/90; PULSE 81; RESP 19; TEMP 97.9; O2SAT 94
--- NOTE | 2017-02-25 14:02 | HHI.FF ---
Face to Face Verification Diagnosis: (1) Anal carcinoma Home Health Nursing Order: Medical education Signs/symptoms of disease process Medication education-adverse effect Wound care and dressing changes Nursing assessment with vital signs Instructions: Colostomy teaching and supplies I have seen patient Anthony Bhakta on 02/25/17. My clinical findings support the need for the requested home health care services because: Ltd mobility - disease progression Deconditioned w/ increased weakness Med compliance is questionable Limited ability to care for self Need for psychosocial assistance Impaired cognition/judgement I certify that my clinical findings support that this patient is homebound because: Post-op weakness Impaired cognitive ability/safety Unsteady gait/balance Unsafe to leave home unassisted Need for psychosocial assistance Ruddy Becerril MD Feb 25, 2017 14:02
[2017-02-25 16:00] VITALS: BP 158/89; PULSE 85; RESP 18; TEMP 96.6; O2SAT 95
--- NOTE | 2017-02-25 17:30 | PD.WCN.NOT ---
Wound Consult Description: Consult for NEW OSTOMY TEACHING on LUQ per Dr Becerril Communicated with: AMITA Burris, Nurse tray delivery aide Recommendation: Follow up with [facility] for further ostomy teaching Additional Information: Patient seen on [facility] [place] for Ostomy teaching of new loop stoma on left lower quadrant. Ostomy Type: Colostomy, Other (Loop Colostomy) Date of Surgery: Feb 20, 2017 Complete: Starter kit, Other (Ostomy Teaching ) Educated patient on: Patient seen on [facility] [place] for Ostomy teaching of new loop stoma on left lower quadrant. Patient was hard of hearing in both ears, worse on left, and needed glasses to see, otherwise was alert and oriented times 4. We began by going over questions that the patient had including how many [facility] nurse visits he was going to have, how long the appliance stays on for, and what appliances he was going home with. The patient was taught how to properly remove the wafer ( sometimes called face plate or barrier). The patient was knowledgeable about cleaning around his stoma, and demonstrated this after we worked as a team for removal of appliance. Patient then looked at his stoma and we discussed the appearance of the stoma (edematous with red moist tissue, black tissue sloughing to reveal purple color, and hard white tissues noted from 11- 1 o' clock), the moderate soft brown output of stool (effluent) noted, and minimal mucus visualized, which is expected with a loop stoma. There was minimal bleeding from the mucocutaneous junction with intact sutures noted after cleansing with water and soft cloths. The peristomal skin was intact and unremarkable. Patient was then handed a wafer with flange and a pouch. Patient was educated on attaching the wafer to the pouch and opening and closing the end for emptying of bag. Patient was able to demonstrate taking off appliance, attaching appliance, opening and closing appliance with verbal understanding as well. Additional information Obtained verbal consent and home address for starter kit to be sent to patient home. 4 appliances ordered today from [facility] for patient to go home with. Patient will be followed up with tomorrow prior to discharge for further education and materials. Steph Meneses [facility] Feb 25, 2017 17:10
--- NOTE | 2017-02-25 18:41 | HHI.PR ---
Subjective Remarks Passing gas. Liquid stool. Objective Vital Signs Date Time Temp Pulse Resp B/P Pulse Ox O2 Delivery O2 Flow Rate FiO2 02/25/17 16:00 96.6 85 18 158/89 95 02/25/17 12:00 97.9 81 19 143/90 94 02/25/17 08:00 98.2 81 17 171/88 95 02/25/17 00:00 97.8 82 17 147/76 95 02/24/17 20:00 98.7 103 18 164/82 94 I/O 02/24/17 02/24/17 02/24/17 02/25/17 02/25/17 02/25/17 07:00 15:00 23:00 07:00 15:00 23:00 Intake Total 1044 ml 867 ml 556 ml 465 ml 961 ml Output Total 550 ml 475 ml 800 ml 500 ml Balance 494 ml 867 ml 81 ml -335 ml 461 ml Intake Oral 240 ml 120 ml 240 ml 240 ml 240 ml IV Total 804 ml 747 ml 316 ml 225 ml 721 ml Output Urine Total 550 ml 425 ml 800 ml 500 ml Stool Total 0 ml 50 ml # Bowel Movements 0 Result Diagram: 02/24/17 0635 02/24/1735 Objective Remarks VS-S Abd: obese,soft, stoma extremly beefy and edematous causing mucosal slough, but viable,pink mucosa visible Assessment and Plan Assessment and Plan Anal obstruction due to Anal cancer. Plan: D/C tomorrow with [facility] for colostomy teaching. Also needs ET nurse for teaching and supplies Ruddy Becerril MD Feb 25, 2017 18:40
[2017-02-25 20:00] VITALS: BP 170/83; PULSE 115; RESP 20; TEMP 99.9; O2SAT 92
[2017-02-25] MEDS: ZOLPIDEM TARTRATE 5 MG TAB PO PRN (23:09)
[2017-02-26] VITALS: BP 142/89; PULSE 111; RESP 18; TEMP 98.1; O2SAT 93
[2017-02-26] MEDS: METOCLOPRAMIDE HCL 10 MG/2 ML VIAL IV SCH (04:31)
[2017-02-26] MEDS: RESP: ALBUTEROL 2.5 MG/3 ML NEB (SCH) INH (07:43)
[2017-02-26 08:00] VITALS: BP 162/93; PULSE 99; RESP 20; TEMP 98.8; O2SAT 95
[2017-02-26] MEDS: PANTOPRAZOLE SODIUM 40 MG VIAL IV PUSH SCH (08:47)
--- NOTE | 2017-02-26 09:00 | HHI.PR ---
Subjective . For D/C today. F/U with Dr Heaton and Radiation oncology Objective . VS-S Abd: benign,Stoma pinker Assessment/Plan . Anal Cancer. S/P Diverting Colostomy D/C with [facility] for colostomy teaching Ruddy Becerril MD Feb 26, 2017 09:00
[2017-02-26] MEDS ORDERED: OXYC1TAB63 PO (09:13)
--- NOTE | 2017-02-26 10:00 | PD.ONC.PN ---
Subjective Subjective Remarks Afebrile overnight. Patient resting in bed in nad. Eager to go home. Pain improved. Objective Data Date Time Temp Pulse Resp B/P Pulse Ox O2 Delivery O2 Flow Rate FiO2 02/26/17 08:00 98.8 99 20 162/93 95 02/26/17 00:00 98.1 111 18 142/89 93 02/25/17 20:00 99.9 115 20 170/83 92 02/25/17 16:00 96.6 85 18 158/89 95 02/25/17 12:00 97.9 81 19 143/90 94 02/26/17 02/26/17 02/26/17 07:00 15:00 23:00 Intake Total 0 ml Output Total 300 ml Balance -300 ml Result Diagram: 02/24/1763402/24/17634 Administered Medications Medications (Trade) Dose Ordered Sig/Freddie Route PRN Reason Start Time Stop Time Status Last Admin Dose Admin Sodium Chloride (NS Flush) 5 ml UNSCH PRN IVF SEE PROTOCOL 02/19/17 12:00 02/23/17 21:51 Oxycodone/ Acetaminophen (Percocet 5-325 Mg) 1 tab Q3HR PRN PO PAIN SCALE 1 TO 5 02/21/17 20:00 02/26/17 07:01 Oxycodone/ Acetaminophen (Percocet 5-325 Mg) 2 tab Q3HR PRN PO PAIN SCALE 6 TO 10 02/21/17 20:00 02/24/17 22:25 Metoclopramide HCl (Reglan Inj) 10 mg Q6HR IV 02/22/17 12:00 02/26/17 04:31 Pantoprazole Sodium (Protonix Inj) 40 mg BID IV PUSH 02/22/17 09:00 02/26/17 08:47 Ondansetron HCl (Zofran Inj) 4 mg Q4H PRN IV PUSH NAUSEA 02/22/17 07:45 02/22/17 07:55 Al Hydrox/Mg Hydrox/Simethicone (Mag-Al Plus Susp Liq) 30 ml Q4H PRN PO HEARTBURN 02/22/17 07:45 02/24/17 09:13 Zolpidem Tartrate (Ambien) 5 mg HS PRN PO SLEEP 02/24/17 21:00 02/25/17 23:09 Objective Remarks GENERAL: Middle aged male upright in bed. hard of hearing. SKIN: Warm and dry. HEAD: Normocephalic. EYES: No injection or drainage. NECK: Supple, trachea midline. CARDIOVASCULAR: +S1/S2 RESPIRATORY: Breath sounds equal bilaterally. No accessory muscle use. GASTROINTESTINAL: Abdomen soft. colostomy bag in place. EXTREMITIES: No cyanosis NEUROLOGICAL: aox3 normal speech. moving extremities. 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 Plan 1. clear for discharge. 2. follow up in clinic next week. has appointment Friday. March 07. Plan to give chemo and XRT outpatient. d/w patient, sister and daughter at bedside. Attending Statement The exam, history, and the medical decision-making described in the above note were completed with the assistance of the mid-level provider. I reviewed and agree with the findings presented. I attest that I had a [id number] encounter with the patient on the same day, and personally performed and documented my assessment and findings in the medical record. met with sister with patient and discussed treatment and answered questions. he is hard of hearing but with the help of his sister, repetition and a loud voice he was able to understand what is to take place. At present he looks well and the abdomen is soft. I have asked him to walk and be physically active at home. He is able to eat pretty much what he wants. Will see next week. Jessica Tejeda Feb 26, 2017 10:00 Benitez Heaton MD Feb 26, 2017 18:45
--- NOTE | 2017-02-26 10:29 | PD.WCN.NOT ---
Wound Consult Description: Consult for NEW OSTOMY TEACHING on LUQ per Dr Becerril Recommendation: Follow up with [facility] for further ostomy teaching Additional Information: Me + kit given to patient with phone number to [employer] for questions regarding appliances. Education on foods and exercise was discussed. Patient states feeling confident in going home with colostomy and appliances. Ostomy Type: Colostomy, Other (Loop Colostomy) Date of Surgery: Feb 20, 2017 Complete: Starter kit, Other (Ostomy Teaching ) Educated patient on: Patient seen on for reinforcement of ostomy teaching with patients sister and niece at bedside. Patient was able to demonstrate emptying the pouch today. Had questions regarding the application of the barrier that were answered. Dr Heaton came in and spoke with patient regarding chemo and radiation. Patient has supplies to go home with and home health care is being set up for patient to have [facility] visits as well. Steph Meneses [facility] Feb 26, 2017 10:29
== END 2017-02-26 11:41 | disposition home health service (06) | DRG 331 ==
LOC: N07B 19:51
PROVIDERS: ADMIT Colon & Rectal Surgery; ATTEND Colon & Rectal Surgery
PROC: 0JH60XZ Insertion of Tunneled Vascular Access Device into Chest Subcutaneous Tissue and Fascia, Open Approach (ICD-10-PCS; 2017-02-19)
PROC: 02HV33Z Insertion of Infusion Device into Superior Vena Cava, Percutaneous Approach (ICD-10-PCS; 2017-02-19)
PROC: B548ZZA Ultrasonography of Superior Vena Cava, Guidance (ICD-10-PCS; 2017-02-19)
PROC: 3E1H78Z Irrigation of Lower GI using Irrigating Substance, Via Natural or Artificial Opening (ICD-10-PCS; 2017-02-20)
PROC: 0D1N0Z4 Bypass Sigmoid Colon to Cutaneous, Open Approach (ICD-10-PCS; principal; 2017-02-20 17:16)
DX: C21.1 Malignant neoplasm of anal canal (principal); E66.9 Obesity, unspecified; I10 Essential (primary) hypertension; Z68.30 Body mass index [BMI] 30.0-30.9, adult; E11.9 Type 2 diabetes mellitus without complications; Z79.84 Long term (current) use of oral hypoglycemic drugs; M10.9 Gout, unspecified; I25.10 Atherosclerotic heart disease of native coronary artery without angina pectoris; Z95.5 Presence of coronary angioplasty implant and graft; Z79.02 Long term (current) use of antithrombotics/antiplatelets; E78.00 Pure hypercholesterolemia, unspecified; H91.90 Unspecified hearing loss, unspecified ear; Z87.891 Personal history of nicotine dependence
CPT/HCPCS: 36561; 71250; 74176; 76937; 77001; 77263; 77334; 80048; 80053; 81001; 85025; 85610; 85730; 93005; 94640; 94664; 99152; 99153; 99222; C1788; C9113; J0131; J0690; J1100; J1642; J2250; J2270; J2405; J2710; J2765; J3010; J3370; J3480; J7042; J7050; J7120; J7613

== ENCOUNTER 2017-10-15 07:58 | Day surgery (SDC) | payer OTHER ==
[~2017-10-15] VITALS: Ht 175.3 cm; Wt 76.9 kg
[2017-10-15] VITALS (8 sets, daily range): BP systolic 129–159; BP diastolic 70–89; PULSE 63–81; RESP 18; TEMP 98.4; O2SAT 18–98
[~2017-10-15 07:58] MED LIST: ALLO100T PO; ATOR40TA16 PO; CLOP75TA PO; LISI40TA PO; METF1000 PO; METO50TA PO; OXYC1TAB63 PO; TRAZ50TA12 PO
[2017-10-15] MEDS ORDERED: SODIUM CHLOR 0.9% 1000 ML INJ 1,000 ML IV SCH (08:30)
[2017-10-15 08:45] LABS: AUTOMATED NEUTROPHIL # 3.5 TH/MM3 (1.8-7.7); BASOPHIL % 0.6 % (0.0-2.0); EOSINOPHIL # 0.1 TH/MM3 (0-0.4); EOSINOPHIL % 2.2 % (0.0-4.0); HEMATOCRIT 34.4 % (39.0-51.0); HEMOGLOBIN 11.8 GM/DL (13.0-17.0); LYMPH % 7.3 % (9.0-44.0); LYMPHOCYTE # 0.3 TH/MM3 (1.0-4.8); MEAN CELL VOLUME 98.2 FL (80.0-100.0); MEAN CORPUSCULAR HEMOGLOBIN 33.7 PG (27.0-34.0); MEAN CORPUSCULAR HGB CONC 34.3 % (32.0-36.0); MEAN PLATELET VOLUME 7.6 FL (7.0-11.0); MONO % 8.7 % (0.0-8.0); MONOCYTE # 0.4 TH/MM3 (0-0.9); NEUT % 81.2 % (16.0-70.0); PLATELET COUNT 155 TH/MM3 (150-450); RED CELL DISTRIBUTION WIDTH 13.1 % (11.6-17.2); WHITE BLOOD COUNT 4.2 TH/MM3 (4.0-11.0)
[2017-10-15 08:54] LABS: INTERNATIONAL NORMALIZED RATIO 1.1 RATIO; PROTHROMBIN TIME - PATIENT 10.7 SEC (9.8-11.6)
[2017-10-15] MEDS ORDERED: MIDAZOLAM HCL 2 MG/2 ML VIAL IV ONE (11:50)
[2017-10-15] MEDS ORDERED: IOHEXOL 350 MG/ML 10 ML VIAL (for RAD DIAG) IVCONTRAST ONE (12:31)
--- NOTE | 2017-10-15 12:52 | RADRPT ---
EXAM DATE/TIME: 10/15/2017 11:55 [place] COMPARISON: No previous studies available for comparison. INDICATIONS : Liver lesions SEDATION TIME: 30 minutes BIOPSY SITE: liver MEDICATION(S): 1.) 2 mg midazolam (Versed) IV 2.) 100 mcg fentanyl (Sublimaze) IV DEVICE(S): 1.) 20 gauge Temno core biopsy needle MEDICAL HISTORY : Hypertension. Diabetes mellitus type 2. Anal ca SURGICAL HISTORY : Coronary artery stent. Colostomy. ENCOUNTER: Initial ACUITY: 1 day PAIN SCORE: 0/10 LOCATION: Left lobe of the liver A total of one core specimen(s) were obtained and sent to the laboratory for pathologic evaluation. PROCEDURE: 1. CT guided liver biopsy. 2. Conscious sedation with continuous EKG and oximetry monitoring. 3. EKG and oximetry remained stable throughout the procedure. Prior to the procedure informed consent was obtained. Any appropriate prior imaging studies were rev iewed. Using automated exposure control and adjustment of the mA and/or kV according to patient size, radiat ion dose was kept as low as reasonably achievable to obtain optimal diagnostic quality images. DICOM format image data is available electronically for review and comparison. The site was prepped in a sterile fashion. Full sterile technique was used, including cap, mask, zara rile gloves and gown and a large sterile sheet. Hand hygiene and 2% chlorhexidine and/or betadine/al cohol prep was utilized per protocol for cutaneous antisepsis. The skin and subcutaneous tissues wer e infiltrated with local anesthetic solution. With CT guidance the previously identified target was localized. Biopsy was performed using the presc ribed needle as above. Adequate hemostasis was obtained with compression at the puncture site. Follow-up CT scan reveals no hemorrhage. The patient tolerated the procedure well and there were no complications. The patient was returned to the Radiology Outpatient Unit in stable condition. CONCLUSION: Uncomplicated CT guided biopsy. Bora Beltran MD on October 15, 2017 at 12:48 Board Certified Radiologist. This report was verified electronically.
== END 2017-10-15 16:06 | disposition home or self-care (01) ==
LOC: HRAD 07:58 → HRIP 08:01 → HRAD 16:06
PROVIDERS: ATTEND Internal Medicine
DX: K76.9 Liver disease, unspecified (principal); I10 Essential (primary) hypertension; E11.9 Type 2 diabetes mellitus without complications; Z85.048 Personal history of other malignant neoplasm of rectum, rectosigmoid junction, and anus; Z93.3 Colostomy status; Z79.84 Long term (current) use of oral hypoglycemic drugs
CPT/HCPCS: 47000; 77012; 85025; 85610; 85730; 88307; J2250; J3010; J7030; Q9967